=== PATIENT | female | born 1945 | race Caucasian/White ===

== ENCOUNTER 2018-10-26 12:55 | Emergency (ER) | payer MEDICARE, BC ==
[2018-10-26] MEDS ORDERED: Sodium Chloride 0.9% 10 ML Syringe FLUSH PRN (13:01)
[2018-10-26] MEDS ORDERED: Sodium Chloride 0.9% 2.5 ML Syringe FLUSH PRN (13:01)
--- NOTE | 2018-10-26 13:33 | CR ---
Indication: Chest pain. Technique: PA and lateral views the chest were obtained. Comparison: None Findings: Heart is normal in size. The lungs are clear. No infiltrate, pleural effusion, or pneumothorax is identified. Impression: No acute cardiopulmonary process. Dictated by Deborah Hartmann MD @ Oct 26 2018 1:31PM Signed by Dr. Deborah Hartmann @ Oct 26 2018 1:32PM
--- NOTE | 2018-10-26 13:42 | EDM.PDOC ---
ED HPI GENERAL MEDICAL PROBLEM - General Chief Complaint: Cardiovascular Problem Stated Complaint: HEART ISSUES Time Seen by Provider: 10/26/18 13:16 - History of Present Illness INITIAL COMMENTS - FREE TEXT/NARRATIVE: HISTORY AND PHYSICAL: History of present illness: Patient is a 73-year-old white female who presents with concern of palpitations patient describes some vague feeling in her chest this is not a pain and there is no associated diaphoresis shortness of breath nausea or vomiting she is currently being evaluated and monitored for these episodes of palpitations but has not received any formal diagnosis. Review of systems: As per history of present illness and below otherwise all systems reviewed and negative. Past medical history: As per history of present illness and as reviewed below otherwise noncontributory. Surgical history: As per history of present illness and as reviewed below otherwise noncontributory. Social history: No reported history of drug or alcohol abuse. Family history: As per history of present illness and as reviewed below otherwise noncontributory. Physical exam: HEENT: Atraumatic, normocephalic, pupils reactive, negative for conjunctival pallor or scleral icterus, mucous membranes moist, throat clear, neck supple, nontender, trachea midline. Lungs: Clear to auscultation, breath sounds equal bilaterally, chest nontender. Heart: S1S2, regular, negative for clicks, rubs, or JVD. Abdomen: Soft, nondistended, nontender. Negative for masses or hepatosplenomegaly. Negative for costovertebral tenderness. Pelvis: Stable nontender. Genitourinary: Deferred. Rectal: Deferred. Extremities: Atraumatic, negative for cords or calf pain. Neurovascular unremarkable. Neuro: Awake, alert, oriented. Cranial nerves II through XII unremarkable. Cerebellum unremarkable. Motor and sensory unremarkable throughout. Exam nonfocal. Diagnostics: CBC CMP troponin PT/INR chest x-ray EKG Therapeutics: IV O2 monitor Impression: 1 palpitations #2 medical screening exam Definitive disposition and diagnosis as appropriate pending reevaluation and review of above. - Related Data Allergies Allergy/AdvReac Type Severity Reaction Status Date / Time No Known Allergies Allergy Verified 10/26/18 13:00 Home Meds: Home Meds Lisinopril 20 mg PO DAILY 07/31/14 [History] Calcium Carbonate/Vitamin D3 [Calcium 600 + Vit D 200] 1 tab PO DAILY 12/15/15 [ History] Gluc 2KCl/Chondr/Stewart Hy/Hy Ac [Glucosamine & Chondroitin Cap] 1 tab PO DAILY [History] Iron,Carbonyl/Vit C/Vit B12/Fa [Iron 100 Plus Tablet] 1 tab PO DAILY 12/15/15 [ History] L.acidoph,Paracasei, B.lactis [Probiotic] 1 tab PO DAILY 12/15/15 [History] Multivitamin [Multivitamins] 1 tab PO DAILY 12/15/15 [History] Potassium Chloride [Klor-Con 10] 1 tab PO DAILY 12/15/15 [History] Vitamin E Mixed [Vitamin E] 1 tab PO DAILY 12/15/15 [History] Past Medical History HEENT History: Reports: Other (See Below) Other HEENT History: wears glasses Cardiovascular History: Reports: Arrhythmia, Hypertension Respiratory History: Reports: None Gastrointestinal History: Reports: GERD Genitourinary History: Reports: None 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: Musculoskeletal History: Reports: None Neurological History: Reports: None Psychiatric History: Reports: None Endocrine/Metabolic History: Reports: None Hematologic History: Reports: None Immunologic History: Reports: None Oncologic (Cancer) History: Reports: None Dermatologic History: Reports: None - Infectious Disease History Infectious Disease History: Reports: Chicken Pox, Measles, Mumps - Past Surgical History Head Surgeries/Procedures: Reports: None GI Surgical History: Reports: Appendectomy Social & Family History - Family History Family Medical History: Noncontributory HEENT: Reports: Cataract Cardiac: Reports: Heart Failure, Hypertension, [place] GI: Reports: None : Reports: None OBGYN: Reports: Musculoskeletal: Reports: Gout Psychiatric: Reports: None Endocrine/Metabolic: Reports: Diabetes, type II Hematologic: Reports: None Immunologic: Reports: None Dermatologic: Reports: None Oncologic: Reports: Breast, Renal - Tobacco Use Smoking Status *Q: Never Smoker - Recreational Drug Use Recreational Drug Use: No ED ROS GENERAL - Review of Systems Review Of Systems: ROS reveals no pertinent complaints other than HPI. ED EXAM, GENERAL - Physical Exam Exam: See Below (Dictation) Course - Vital Signs Last Recorded V/S: Last Vital Signs Temp 36.5 C 10/26/18 13:00 Pulse 59 L 10/26/18 13:00 Resp 18 10/26/18 13:00 BP 190/108 H 10/26/18 13:00 Pulse Ox 98 10/26/18 13:01 - Orders/Labs/Meds Orders: Active Orders 24 hr Category Date Time Status Cardiac Monitoring [RC] . DIRECTED Care 10/26/18 13:01 Active EKG Documentation Completion [RC] STAT Care 10/26/18 13:01 Active Oxygen Therapy [RC] ASDIRECTED Care 10/26/18 13:01 Active Sodium Chloride 0.9% [Saline Flush] Med 10/26/18 13:01 Active 10 ml FLUSH ASDIRECTED PRN Sodium Chloride 0.9% [Saline Flush] Med 10/26/18 13:01 Active 2.5 ml FLUSH ASDIRECTED PRN Saline Lock Insert [OM.PC] Stat Ot 10/26/18 13:01 Ordered Saline Lock Insert [OM.PC] Stat Ot 10/26/18 13:01 Ordered Medication Orders Sodium Chloride (Saline Flush) 10 ml FLUSH ASDIRECTED PRN PRN Reason: Keep Vein Open Sodium Chloride (Saline Flush) 2.5 ml FLUSH ASDIRECTED PRN PRN Reason: Keep Vein Open Labs: Laboratory Tests 10/26/18 10/26/18 10/26/18 Range/Units 13:35 13:35 13:35 WBC 8.45 (4.0-11.0) K/uL RBC 4.24 L (4.30-5.90) M/uL Hgb 12.8 (12.0-16.0) g/dL Hct 37.4 (36.0-46.0) % MCV 88.2 (80.0-98.0) fL MCH 30.2 (27.0-32.0) pg MCHC 34.2 (31.0-37.0) g/dL RDW Std Deviation 42.2 (28.0-62.0) fl RDW Coeff of Vaibhav 13 (11.0-15.0) % Plt Count 322 (150-400) K/uL MPV 8.50 (7.40-12.00) fL Neut % (Auto) 71.0 (48.0-80.0) % Lymph % (Auto) 19.9 (16.0-40.0) % [place] % (Auto) 6.3 (0.0-15.0) % Eos % (Auto) 2.4 (0.0-7.0) % Baso % (Auto) 0.4 (0.0-1.5) % Neut # (Auto) 6.0 H (1.4-5.7) K/uL Lymph # (Auto) 1.7 (0.6-2.4) K/uL [place] # (Auto) 0.5 (0.0-0.8) K/uL Eos # (Auto) 0.2 (0.0-0.7) K/uL Baso # (Auto) 0.0 (0.0-0.1) K/uL Nucleated RBC % 0.0 /100WBC Nucleated RBCs # 0 K/uL Sodium 135 L (136-145) mmol/L Potassium 3.8 (3.5-5.1) mmol/L Chloride 103 (98-107) mmol/L Carbon Dioxide 25.9 (21.0-32.0) mmol/L BUN 11 (7.0-18.0) mg/dL Creatinine 0.9 (0.6-1.0) mg/dL Est Cr Clr Drug Dosing 55.75 mL/min Estimated GFR (MDRD) > 60.0 ml/min Glucose 110 H (74-106) mg/dL Calcium 8.9 (8.5-10.1) mg/dL Magnesium 2.4 (1.8-2.4) mg/dL Total Bilirubin 0.7 (0.2-1.0) mg/dL AST 27 (15-37) IU/L ALT 37 (14-63) IU/L Alkaline Phosphatase 83 (46-116) U/L Troponin I < 0.050 (0.000-0.056) ng/mL Total Protein 6.9 (6.4-8.2) g/dL Albumin 3.3 L (3.4-5.0) g/dL Globulin 3.6 (2.6-4.0) g/dL Albumin/Globulin Ratio 0.9 (0.9-1.6) TSH 3rd Generation 2.29 (0.36-3.74) uIU/mL Meds: Medications Generic Name Dose Route Start Last Admin Trade Name Freq PRN Reason Stop Dose Admin Sodium Chloride 10 ml 10/26/18 13:01 Saline Flush FLUSH ASDIRECTED PRN Keep Vein Open Sodium Chloride 2.5 ml 10/26/18 13:01 Saline Flush FLUSH ASDIRECTED PRN Keep Vein Open Departure - Departure Time of Disposition: 15:17 Disposition: Home, Self-Care 01 Condition: Good Clinical Impression: Palpitations Referrals: PCP,Unknown [Primary Care Provider] - Forms: ED Department Discharge Additional Instructions: The following information is given to patients seen in the emergency department who are being discharged to home. This information is to outline your options for follow-up care. We provide all patients seen in our emergency department with a follow-up referral. The need for follow-up, as well as the timing and circumstances, are variable depending upon the specifics of your emergency department visit. If you don't have a primary care physician on staff, we will provide you with a referral. We always advise you to contact your personal physician following an emergency department visit to inform them of the circumstance of the visit and for follow-up with them and/or the need for any referrals to a consulting specialist. The emergency department will also refer you to a specialist when appropriate. This referral assures that you have the opportunity for followup care with a specialist. All of these measure are taken in an effort to provide you with optimal care, which includes your followup. Under all circumstances we always encourage you to contact your private physician who remains a resource for coordinating your care. When calling for followup care, please make the office aware that this follow-up is from your recent emergency room visit. If for any reason you are refused follow-up, please contact the [facility] emergency department at and asked to speak to the emergency department charge nurse. Continue current medications follow private medical doctor and cardiology as discussed return as needed as discussed
[2018-10-26 14:08] LABS: CHLORIDE,CL 103 mmol/L (98-107); SODIUM,NA 135 mmol/L (136-145)
[2018-10-26 15:45] VITALS: BP 144/83
== END 2018-10-26 15:30 | disposition home or self-care (01) ==
LOC: MW.ED 12:55
DX: R00.2 Palpitations (principal); I10 Essential (primary) hypertension; K21.9 Gastro-esophageal reflux disease without esophagitis; Z79.899 Other long term (current) drug therapy
CPT/HCPCS: 36415; 71045; 71045-26; 80053; 83735; 84443; 84484; 85025; 93005; 99283; 99285-25

== ENCOUNTER 2019-12-18 22:31 | Emergency (ER) | payer MEDICARE, BC ==
--- NOTE | 2019-12-18 23:07 | EDM.PDOC ---
ED HPI GENERAL MEDICAL PROBLEM - General Chief Complaint: Cardiovascular Problem Stated Complaint: irregular heart beat Time Seen by Provider: 12/18/19 22:32 Source of Information: Reports: Patient History Limitations: Reports: No Limitations - History of Present Illness INITIAL COMMENTS - FREE TEXT/NARRATIVE: HISTORY OF PRESENT ILLNESS: Patient is a 74 year old female with history of palpitations and rhythm irregularities which is being worked up by her international logistics analyst. She was supposed to see a specialist at [place] but it was cancelled due to COVID-19 crisis. She states he called her on the phone and told her there is nothing to worry about regarding the irregularities. She is on Flecainide and Eliquis which she stopped taking on Sunday as she felt it was not doing anything. This evening at 4pm she began feeling irregularity to her heart rhythm and had associated dizziness, had to sit down on a bench and symptoms resolved. Denies any chest pain or dyspnea. No syncope. No weakness or paresthesias. No changes in vision or speech. States she resumed her dose of Flecainide this evening after that episode. Had an episode of nonbloody diarrhea yesterday. No vomiting or abdominal pain. No new medications. She checked her blood pressure this evening and found sbp to be 150 which she felt was too high and this prompted her to come in. REVIEW OF SYSTEMS: Other than the symptoms associated with the present events, the following is reported with regard to recent health: General: (-) fever. HENT: (-) congestion. Respiratory: (-) cough. Cardiovascular: (-) chest pain. (+) irregular heart beat GI: (-) abdominal pain. : (-) urinary complaints. Musculoskeletal: (-) other aches or pains. Endocrine: (-) generalized weakness. Neurological: (-) localized weakness. Skin: (-) rash PAST MEDICAL HISTORY: reviewed as per nursing notes SOCIAL HISTORY: reviewed as per nursing notes, MEDICATIONS: Per nurse's note ALLERGIES: Per nurse's note, reviewed by me PHYSICAL EXAMINATION: GENERALIZED APPEARANCE: well developed, well nourished in no distress VITAL SIGNS: Per nurse's note, reviewed by me SKIN: Warm, dry; (-) cyanosis; (-) rash. HEAD: (-) scalp swelling, (-) tenderness. EYES: (-) conjunctival pallor, (-) scleral icterus. ENMT: (-) stridor; mucous membranes moist. NECK: (-) tenderness, (-) stiffness, CHEST AND RESPIRATORY: (-) rales, (-) rhonchi, (-) wheezes; breath sounds equal bilaterally. HEART AND CARDIOVASCULAR: (+) irregularity; (-) murmur, (-) gallop. ABDOMEN AND GI: Soft; (-) tenderness, (-) guarding, (-) rebound, (-) palpable masses, EXTREMITIES: (-) deformity, (-) edema. NEURO AND PSYCH: Alert. Cranial nerves grossly intact; strength symmetric. gait steady DIAGNOSTICS: EKG: sr at 77 bpm. nml axis. pvcs. no st elevation CXR: as read by radiologist, reviewed by myself Labs reviewed EMERGENCY DEPARTMENT COURSE AND TREATMENT: Patient's condition remained stable during Emergency Department evaluation. Labs and diagnostics ordered. Hypokalemia noted and replaced. EKG with Pvcs but no ST elevation or malignant dysrhythmia. Troponin wnl. Patient denies any chest pain or syncope. Based on history, physical exam, and diagnostic evaluation, the patient appears to have symptoms consistent with palpitations/pvcs. The physical exam was unremarkable including normal chest and respiratory exam. Laboratory testing was performed. Do not suspect acute emergent cardiopulmonary etiology to symptoms. Patient states she feels fine on reevaluation and requesting discharge to home. The patient will be discharged to follow-up with their primary care physician in the next 24-48 hours or return here if unable to make an appointment with their primary care physician. Also to follow up with her international logistics analyst tomorrow. Patient was advised of our evaluation and instructed to seek medical attention immediately if symptoms change, worsen, or new symptoms develop. PLAN AND FOLLOW-UP: Patient received written and verbal instructions regarding this condition. Return to ED immediately with any new or worsening symptoms. Follow up to be arranged by Patient with pcp and international logistics analyst in 1 days for further evaluation. Given discharge precautions. patient expressed verbal understanding. - Related Data Allergies Allergy/AdvReac Type Severity Reaction Status Date / Time No Known Allergies Allergy Verified 10/26/18 13:00 Home Meds: Home Meds Apixaban [Eliquis] 1 tab PO BID 12/18/19 [History] Calcium Carb, Citrate/Vit D3 [Calcium + D3 ER Tablet] 1 tab PO TID 12/18/19 [ History] Flecainide [Tambocor] 1 tab PO BID 12/18/19 [History] Glucosam/Chondr/Collagn/Hyalur [Glucosamine & Chondroitin Cap] 2 cap PO DAILY [History] Losartan Potassium 1 tab PO DAILY 12/18/19 [History] Metoprolol Succinate 1 tab PO DAILY 12/18/19 [History] Multivitamin [One-Daily Multi-Vitamin] 1 tab PO DAILY 12/18/19 [History] Non-Formulary Medication [NF Drug] 12/18/19 [History] Non-Formulary Medication [NF Drug] 12/18/19 [History] Non-Formulary Medication [NF Drug] 12/18/19 [History] Omeprazole 1 tab PO DAILY 12/18/19 [History] Potassium Chloride 1 tab PO DAILY 12/18/19 [History] Past Medical History HEENT History: Reports: Other (See Below) Other HEENT History: wears glasses Cardiovascular History: Reports: Arrhythmia, Hypertension Respiratory History: Reports: None Gastrointestinal History: Reports: GERD Genitourinary History: Reports: None 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: Musculoskeletal History: Reports: None Neurological History: Reports: None Psychiatric History: Reports: None Endocrine/Metabolic History: Reports: None Hematologic History: Reports: None Immunologic History: Reports: None Oncologic (Cancer) History: Reports: None Dermatologic History: Reports: None - Infectious Disease History Infectious Disease History: Reports: Chicken Pox, Measles, Mumps - Past Surgical History Head Surgeries/Procedures: Reports: None GI Surgical History: Reports: Appendectomy Social & Family History - Family History Family Medical History: Noncontributory HEENT: Reports: Cataract Cardiac: Reports: Heart Failure, Hypertension, [place] GI: Reports: None : Reports: None OBGYN: Reports: Musculoskeletal: Reports: Gout Psychiatric: Reports: None Endocrine/Metabolic: Reports: Diabetes, type II Hematologic: Reports: None Immunologic: Reports: None Dermatologic: Reports: None Oncologic: Reports: Breast, Renal ED ROS GENERAL - Review of Systems Review Of Systems: See Below (see dictation) ED EXAM, GENERAL - Physical Exam Exam: See Below (see dictation) Course - Vital Signs Last Recorded V/S: Last Vital Signs Temp 97.6 F 12/18/19 22:48 Pulse 69 12/18/19 22:48 Resp 18 04/16/20 22:48 BP 150/87 H 12/18/19 22:48 Pulse Ox 99 12/18/19 22:48 - Orders/Labs/Meds Orders: Active Orders 24 hr Category Date Time Status EKG 12 Lead [EKG Documentation Completion] [RC] STAT Care 12/18/19 22:40 Active Labs: Laboratory Tests 12/18/19 12/18/19 Range/Units 23:05 23:05 WBC 9.39 (4.0-11.0) K/uL RBC 4.10 L (4.30-5.90) M/uL Hgb 12.1 (12.0-16.0) g/dL Hct 37.1 (36.0-46.0) % MCV 90.5 (80.0-98.0) fL MCH 29.5 (27.0-32.0) pg MCHC 32.6 (31.0-37.0) g/dL RDW Std Deviation 44.0 (28.0-62.0) fl RDW Coeff of Vaibhav 13 (11.0-15.0) % Plt Count 341 (150-400) K/uL MPV 8.40 (7.40-12.00) fL Neut % (Auto) 70.7 (48.0-80.0) % Lymph % (Auto) 18.5 (16.0-40.0) % [place] % (Auto) 7.9 (0.0-15.0) % Eos % (Auto) 2.6 (0.0-7.0) % Baso % (Auto) 0.3 (0.0-1.5) % Neut # (Auto) 6.6 H (1.4-5.7) K/uL Lymph # (Auto) 1.7 (0.6-2.4) K/uL [place] # (Auto) 0.7 (0.0-0.8) K/uL Eos # (Auto) 0.2 (0.0-0.7) K/uL Baso # (Auto) 0.0 (0.0-0.1) K/uL Nucleated RBC % 0.0 /100WBC Nucleated RBCs # 0 K/uL Sodium 141 (136-145) mmol/L Potassium 3.3 L (3.5-5.1) mmol/L Chloride 105 (98-107) mmol/L Carbon Dioxide 23.0 (21.0-32.0) mmol/L BUN 14 (7.0-18.0) mg/dL Creatinine 0.8 (0.6-1.0) mg/dL Est Cr Clr Drug Dosing TNP Estimated GFR (MDRD) > 60.0 ml/min Glucose 114 H (74-106) mg/dL Calcium 8.3 L (8.5-10.1) mg/dL Phosphorus 3.3 (2.6-4.7) mg/dL Magnesium 2.1 (1.8-2.4) mg/dL Troponin I < 0.050 (0.000-0.056) ng/mL TSH 3rd Generation 3.43 (0.36-3.74) uIU/mL Meds: Medications Discontinued Medications Generic Name Dose Route Start Last Admin Trade Name Freq PRN Reason Stop Dose Admin Potassium Chloride 20 meq 12/18/19 23:55 12/19/19 00:02 Klor-Con M20 PO 12/18/19 23:56 20 meq ONETIME ONE Administration Departure - Departure Time of Disposition: 00:01 Disposition: Home, Self-Care 01 Condition: Good Clinical Impression: Palpitations, Irregular heart beat, PVC (premature ventricular contraction) - Discharge Information *PRESCRIPTION DRUG MONITORING PROGRAM REVIEWED*: Not Applicable *COPY OF PRESCRIPTION DRUG MONITORING REPORT IN PATIENT JOSE: Not Applicable Instructions: Near-Syncope, [id number], Palpitations, [id number] Referrals: Terese Pollack PA [Primary Care Provider] - 1 Day Rasheed Hernandez MD [Physician] - Forms: ED Department Discharge Additional Instructions: The following information is given to patients seen in the emergency department who are being discharged to home. This information is to outline your options for follow-up care. We provide all patients seen in our emergency department with a follow-up referral. The need for follow-up, as well as the timing and circumstances, are variable depending upon the specifics of your emergency department visit. If you don't have a primary care physician on staff, we will provide you with a referral. We always advise you to contact your personal physician following an emergency department visit to inform them of the circumstance of the visit and for follow-up with them and/or the need for any referrals to a consulting specialist. The emergency department will also refer you to a specialist when appropriate. This referral assures that you have the opportunity for follow-up care with a specialist. All of these measure are taken in an effort to provide you with optimal care, which includes your follow-up. Under all circumstances we always encourage you to contact your private physician who remains a resource for coordinating your care. When calling for follow-up care, please make the office aware that this follow-up is from your recent emergency room visit. If for any reason you are refused follow-up, please contact the [facility] Emergency Department at and asked to speak to the emergency department charge nurse. Sepsis Event Note - Evaluation Sepsis Screening Result: No Definite Risk - Focused Exam Vital Signs: Vital Signs Temp Pulse Resp BP Pulse Ox 12/18/19 22:48 97.6 F 69 18 150/87 H 99 Date Exam was Performed: 12/19/19 Time Exam was Performed: 00:15 - My Orders Last 24 Hours: My Active Orders 12/18/19 22:40 EKG 12 Lead [EKG Documentation Completion] [RC] STAT - Assessment/Plan Last 24 Hours: My Active Orders 12/18/19 22:40 EKG 12 Lead [EKG Documentation Completion] [RC] STAT
--- NOTE | 2019-12-18 23:38 | CR ---
Indication: Chest pain Technique: Chest 1 view Comparison: No October 26, 2018 ne Findings/Impression: Cardiovascular and mediastinum: Heart size and vasculature are normal in caliber and appearance. Mediastinum is within normal limits. Electrical device projects over the left cardiac border. Lungs and pleural space: Lungs are clear. No sign of infiltrate or mass. No sign of pleural effusion. No pneumothorax. Bones and soft tissues: No significant findings. Stable elevation of the right hemidiaphragm. Dictated by Giselle Raphael MD @ Dec 18 2019 11:35PM Signed by Dr. Giselle Raphael @ Dec 18 2019 11:36PM
[2019-12-18 23:43] LABS: BLOOD UREA NITROGEN,BUN 14 mg/dL (7.0-18.0); CHLORIDE,CL 105 mmol/L (98-107); GLUCOSE RANDOM 114 mg/dL (74-106); POTASSIUM,K 3.3 mmol/L (3.5-5.1); SODIUM,NA 141 mmol/L (136-145)
[2019-12-18] MEDS ORDERED: Potassium Chloride 20 MEQ Tab.ER PO ONE (23:55)
[2019-12-19 00:34] VITALS: BP 153/88; PULSE 61
== END 2019-12-19 00:15 | disposition home or self-care (01) ==
LOC: MW.ED 22:31
DX: I49.3 Ventricular premature depolarization (principal); R00.2 Palpitations; I10 Essential (primary) hypertension; K21.9 Gastro-esophageal reflux disease without esophagitis; Z79.899 Other long term (current) drug therapy; Z79.01 Long term (current) use of anticoagulants
CPT/HCPCS: 36415; 71045; 80048; 83735; 84100; 84443; 84484; 85025; 93005; 99285; A9270; 99284

== ENCOUNTER 2020-12-16 07:04 | Day surgery (SDC) | payer MEDICARE, BC ==
[~2020-12-16 07:04] MED LIST: Lactated Ringers 1,000 ML IV SCH; Sodium Chloride 0.9% 10 ML SDV IV PRN; Sodium Chloride 0.9% 10 ML Syringe FLUSH PRN; Sodium Chloride 0.9% 2.5 ML Syringe FLUSH PRN
[2020-12-16] MEDS ORDERED: fentaNYL 100 MCG/2 ML SDV ONE (07:38)
[2020-12-16] MEDS ORDERED: Propofol 200 MG/20 ML SDV ONE (07:38)
[2020-12-16] MEDS ORDERED: Lidocaine 2% 5 ML SDV ONE (07:38)
--- NOTE | 2020-12-16 08:04 | PCM.PREANE ---
Preanesthetic Assessment - Anesthesia/Transfusion/Family Hx Anesthesia History: Prior Anesthesia Without Reaction Family History of Anesthesia Reaction: No Transfusion History: No Prior Transfusion(s) - Review of Systems General: No Symptoms Pulmonary: No Symptoms Cardiovascular: No Symptoms Gastrointestinal: No Symptoms Neurological: No Symptoms Other: Reports: None - Physical Assessment NPO Status Date: 12/16/20 NPO Status Time: 00:01 Height: 5 ft 7 in Weight: 150 lb ASA Class: 2 Mental Status: Alert & Oriented x3 Airway Class: Mallampati = 2 Dentition: Reports: Normal Dentition ROM/Head Extension: Limited/Partial Lungs: Clear to Auscultation, Normal Respiratory Effort Cardiovascular: Regular Rate, Regular Rhythm - Allergies Allergies/Adverse Reactions: Allergies Allergy/AdvReac Type Severity Reaction Status Date / Time No Known Allergies Allergy Verified 12/13/20 14:44 - Anesthesia Plan Pre-Op Medication Ordered: None - Acknowledgements Anesthesia Type Planned: General Anesthesia Pt an Appropriate Candidate for the Planned Anesthesia: Yes Alternatives and Risks of Anesthesia Discussed w Pt/Guardian: Yes Pt/Guardian Understands and Agrees with Anesthesia Plan: Yes Additional Comments: npo tob none etoh none nicole afib aflutter tachycardia bradycardia pac's pvc's no mi, cp, chf seen by hand booked folder and stitcher a month ago and cleared for surgery cardiac cath last summer minimal stenosis last eliqu on Sunday par no questions PreAnesthesia Questionnaire HEENT History: Reports: Cataract, Impaired Vision Other HEENT History: wears glasses Cardiovascular History: Reports: Arrhythmia Respiratory History: Reports: None Gastrointestinal History: Reports: GERD, Other (See Below) Other Gastrointestinal History: occasional heartburn Genitourinary History: Reports: None 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: Musculoskeletal History: Reports: Fracture Other Musculoskeletal History: states has fractured ankle and collar bone in the past Neurological History: Reports: None Psychiatric History: Reports: None Endocrine/Metabolic History: Reports: None Hematologic History: Reports: None Immunologic History: Reports: None Oncologic (Cancer) History: Reports: None Dermatologic History: Reports: None - Infectious Disease History Infectious Disease History: Reports: Chicken Pox, Measles, Mumps - Past Surgical History Head Surgeries/Procedures: Reports: None HEENT Surgical History: Reports: None Cardiovascular Surgical History: Reports: None Respiratory Surgical History: Reports: None GI Surgical History: Reports: Appendectomy, Colonoscopy Female Surgical History: Reports: None Endocrine Surgical History: Reports: None Musculoskeletal Surgical History: Reports: None - SUBSTANCE USE Tobacco Use Status *Q: Never Tobacco User - HOME MEDS Home Medications: Home Meds Apixaban [Eliquis] 1 tab PO BID 12/18/19 [History] Calcium Carb, Citrate/Vit D3 [Calcium + D3 ER Tablet] 1 tab PO TID 12/18/19 [History] Glucosam/Chondr/Collagn/Hyalur [Glucosamine & Chondroitin Cap] 2 cap PO DAILY 12/18/19 [History] Losartan Potassium 1 tab PO DAILY 12/18/19 [History] Metoprolol Succinate 1 tab PO DAILY 12/18/19 [History] Multivitamin [One-Daily Multi-Vitamin] 1 tab PO DAILY 12/18/19 [History] Omeprazole 1 tab PO DAILY 12/18/19 [History] Potassium Chloride 1 tab PO DAILY 12/18/19 [History] Iron 1 tab PO DAILY 12/13/20 [History] L.acidoph,Paracasei, B.lactis [Probiotic] 1 each PO DAILY 12/13/20 [History] [place]-3S/DHA/Epa/Fish Oil [[place]-3 Fish Oil 1,000 mg Sfgl] 1 tab PO DAILY 12/13/20 [History] - CURRENT (IN HOUSE) MEDS Current Meds: Current Medications Lactated Ringer's (Ringers, Lactated) 1,000 mls @ 125 mls/hr IV ASDIRECTED LJ Sodium Chloride (Sodium Chloride 0.9% 10 Ml Syringe) 10 ml FLUSH ASDIRECTED PRN PRN Reason: Keep Vein Open Sodium Chloride (Sodium Chloride 0.9% 2.5 Ml Syringe) 2.5 ml FLUSH ASDIRECTED PRN PRN Reason: Keep Vein Open Sodium Chloride (Sodium Chloride 0.9% 10 Ml Syringe) 10 ml FLUSH ASDIRECTED PRN PRN Reason: Keep Vein Open Sodium Chloride (Sodium Chloride 0.9% 2.5 Ml Syringe) 2.5 ml FLUSH ASDIRECTED PRN PRN Reason: Keep Vein Open Sodium Chloride (Sodium Chloride 0.9% 10 Ml Sdv) 10 ml IV ASDIRECTED PRN PRN Reason: IV Use Discontinued Medications Fentanyl (Fentanyl 100 Mcg/2 Ml Sdv) Confirm Administered Dose 100 mcg .ROUTE .STK-MED ONE Stop: 12/16/20 07:39 Lidocaine (Lidocaine 2% 5 Ml Sdv) Confirm Administered Dose 5 ml .ROUTE .STK-MED ONE Stop: 12/16/20 07:39 Propofol (Propofol 200 Mg/20 Ml Sdv) Confirm Administered Dose 200 mg .ROUTE .STK-MED ONE Stop: 12/16/20 07:39
--- NOTE | 2020-12-16 08:58 | PCM.POSTAN ---
POST ANESTHESIA ASSESSMENT - MENTAL STATUS Mental Status: Alert, Oriented - VITAL SIGNS Vital Signs: Last Vital Signs Temp 97.5 F 12/16/20 08:11 Pulse 55 L 12/16/20 08:52 Resp 13 12/16/20 08:52 BP 100/50 L 12/16/20 08:52 Pulse Ox 97 12/16/20 08:52 - RESPIRATORY Respiratory Status: Respiratory Rate WNL, Airway Patent, O2 Saturation Stable - CARDIOVASCULAR CV Status: Pulse Rate WNL, Blood Pressure Stable - GASTROINTESTINAL GI Status: No Symptoms - POST OP HYDRATION Hydration Status: Adequate & Stable - OBSERVATIONS Free Text/Narrative:: no anesthetic problems
--- NOTE | 2020-12-16 09:11 | PCM.POSTAN ---
POST ANESTHESIA ASSESSMENT - MENTAL STATUS Mental Status: Alert (bp stable no anesthetic problems), Oriented - VITAL SIGNS Vital Signs: Last Vital Signs Temp 97.5 F 12/16/20 08:11 Pulse 55 L 12/16/20 08:52 Resp 13 12/16/20 08:52 BP 100/50 L 12/16/20 08:52 Pulse Ox 97 12/16/20 08:52 - RESPIRATORY Respiratory Status: Respiratory Rate WNL, Airway Patent, O2 Saturation Stable - CARDIOVASCULAR CV Status: Pulse Rate WNL, Blood Pressure Stable - GASTROINTESTINAL GI Status: No Symptoms - POST OP HYDRATION Hydration Status: Adequate & Stable
--- NOTE | 2020-12-16 09:31 | PCM.OPNOTE ---
- General Post-Op/Procedure Note Date of Surgery/Procedure: 12/16/20 Operative Procedure(s): Diagnostic colonoscopy Findings: Proctitis and ileitis Pre Op Diagnosis: Ilietis Post-Op Diagnosis: Ileitis and proctitis Anesthesia Technique: DOMINIC Primary Surgeon: Patricia Navarrete Condition: Good Free Text/Narrative:: Intake & Output 12/15/20 12/16/20 12/16/20 22:59 06:59 14:59 Intake Total 750 Balance 750
--- NOTE | 2020-12-16 09:37 | PCM48HPAN ---
Post Anesthesia Note - EVALUATION WITHIN 48HRS OF ANESTHETIC Vital Signs in Normal Range: Yes Patient Participated in Evaluation: Yes Respiratory Function Stable: Yes Airway Patent: Yes Cardiovascular Function Stable: Yes Hydration Status Stable: Yes Pain Control Satisfactory: Yes Nausea and Vomiting Control Satisfactory: Yes Mental Status Recovered: Yes Vital Signs: Last Vital Signs Temp 97.5 F 12/16/20 08:11 Pulse 55 L 12/16/20 08:52 Resp 13 12/16/20 08:52 BP 100/50 L 12/16/20 08:52 Pulse Ox 97 12/16/20 08:52
[2020-12-16 12:35] VITALS: BP 111/67; PULSE 51
--- NOTE | 2020-12-16 17:37 | OR ---
SURGEON: PATRICIA NAVARRETE MD DATE OF PROCEDURE: 12/16/2020 PREOPERATIVE DIAGNOSIS: Ileitis. POSTOPERATIVE DIAGNOSES: 1. Ileitis. 2. Proctitis. PROCEDURE PERFORMED: Diagnostic colonoscopy with biopsy. PRIMARY SURGEON: Patricia Navarrete MD ANESTHESIA: MAC. INSTRUMENT USED: Olympus colonoscope. EXTENT OF EXAM: To the cecum. PREPARATION: Good. LIMITATIONS: None. INDICATIONS FOR EXAMINATION: The patient is a 75-year-old female who presented to clinic with changes in her bowel habits. A CT scan of the abdomen and pelvis showed nonspecific ileitis. 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 The decision was made to proceed with diagnostic colonoscopy. I explained the procedure, expected perioperative course, and the risks. The patient verbalized understanding and wishes to proceed. PROCEDURE IN DETAIL: The patient was brought to the endoscopy suite and placed in the left lateral decubitus position. A time-out was completed verifying the patient's name, age, date of , allergies, and procedure to be performed. Monitored anesthesia care was induced and continuous oxygen was provided via nasal cannula throughout the procedure. After adequate sedation was achieved, a digital rectal exam was performed. This exam was within normal limits. A well-lubricated colonoscope was inserted into the rectum and advanced under direct visualization to the level of the cecum. The cecum was identified by both visual and anatomic landmarks. A photograph was taken of the cecal cap as well as with the scope retroflexed within the cecum. The scope was then fully withdrawn while examining the color, texture, anatomy, and integrity of the mucosa from the cecum to the anal canal. The terminal ileum did appear inflamed. I attempted to intubate the terminal ileum, but due to the inflammation, the area was too narrow and I was unable to do so. Biopsies were taken of the terminal ileum as well as within the cecal cap. Random biopsies were taken in the ascending colon, transverse colon, descending colon, and sigmoid colon. However, these areas all appeared normal. The scope was then brought into the rectum. There appeared to be areas of chronic inflammation in the rectum as well. Biopsies of this inflammation were taken. The scope was then retroflexed to allow visualization of the anal canal opening and a photograph was taken. The scope was straightened out and fully withdrawn. Cecum to anus time was 15 minutes. The patient tolerated the procedure well and was transferred to the PACU in stable condition. ENDOSCOPIC DIAGNOSIS: Ileitis and proctitis. RECOMMENDATIONS: We will follow up on the biopsy results from this case and visit with the patient in clinic to determine the next steps in treatment. MARIE AGUILLON /[id number]
== END 2020-12-16 09:30 | disposition home or self-care (01) ==
LOC: MW.SDS 07:04
PROVIDERS: ATTEND Surgery
DX: K51.20 Ulcerative (chronic) proctitis without complications (principal); K51.90 Ulcerative colitis, unspecified, without complications; I48.91 Unspecified atrial fibrillation; I48.92 Unspecified atrial flutter; K21.9 Gastro-esophageal reflux disease without esophagitis; I10 Essential (primary) hypertension; Z79.899 Other long term (current) drug therapy; Z79.01 Long term (current) use of anticoagulants; Z91.09 Other allergy status, other than to drugs and biological substances; Z90.49 Acquired absence of other specified parts of digestive tract
CPT/HCPCS: 00811; 88305; J2704; J3010; J7120

== ENCOUNTER 2021-06-03 16:45 | Emergency (ER) | payer MEDICARE, BC ==
[2021-06-03] MEDS ORDERED: Sodium Chloride 0.9% 2.5 ML Syringe FLUSH PRN ×2 (16:50→17:58)
[2021-06-03] MEDS ORDERED: Sodium Chloride 0.9% 10 ML Syringe FLUSH PRN ×2 (16:50→17:58)
[2021-06-03 17:29] LABS: BLOOD UREA NITROGEN,BUN 14 mg/dL (7.0-18.0); CARBON DIOXIDE,CO2 26.4 mmol/L (21.0-32.0); CHLORIDE,CL 98 mmol/L (98-107); GLUCOSE RANDOM 114 mg/dL (74-106); POTASSIUM,K 3.4 mmol/L (3.5-5.1); SODIUM,NA 136 mmol/L (136-145)
[2021-06-03] MEDS ORDERED: Aspirin 81 MG Tab.Chew PO ONE (17:35)
--- NOTE | 2021-06-03 17:35 | PCM.EKG ---
#1 Interpretation EKG Date: 06/03/21 Time: 16:50 Rhythm: NSR Rate (Beats/Min): 72 [place]: Normal P-Wave: Present QRS: Normal ST-T: Normal QT: Normal Comparison: No Change (12/18/19) EKG Interpretation Comments: Sinus Rhythm
[2021-06-03] MEDS ORDERED: Sodium Chloride 0.9% 1,000 ML IV ONE (17:37)
--- NOTE | 2021-06-03 17:43 | PCM.EKG ---
#1 Interpretation EKG Date: 06/03/21 Time: 17:35 Rhythm: NSR Rate (Beats/Min): 73 [place]: Normal P-Wave: Present QRS: Normal ST-T: Normal QT: Normal Comparison: No Change (todayt) EKG Interpretation Comments: Sinus Rhythm
[2021-06-03] MEDS ORDERED: Heparin Sodium 5,000 Units/ML Vial IVPUSH ONE (17:58)
[2021-06-03] MEDS ORDERED: Heparin Sodium/0.45% NaCl 500 ML IV SCH (18:00)
--- NOTE | 2021-06-03 18:25 | CR ---
INDICATION: Chest Pain COMPARISON: Chest radiograph December 18, 2019 FINDINGS AND IMPRESSION: Persistent elevation of the right hemidiaphragm. Mild enlargement of the cardiomediastinal silhouette with mild pulmonary vasculature congestion. There is no pulmonary edema. No pneumothorax. Mild opacity within the left lung base likely represents atelectasis. Otherwise, no focal pulmonary opacities. No effusion. Dictated by Denisha Friend MD @ 06/03/2021 6:23:51 PM (Electronically Signed)
--- NOTE | 2021-06-03 18:35 | EDM.PDOC ---
ED HPI GENERAL MEDICAL PROBLEM - General Chief Complaint: Chest Pain Stated Complaint: CHEST PAINS Time Seen by Provider: 06/03/21 16:53 Source of Information: Reports: Patient History Limitations: Reports: No Limitations - History of Present Illness INITIAL COMMENTS - FREE TEXT/NARRATIVE: HISTORY AND PHYSICAL: History of present illness: Patient is a 76-year-old female who presents to the emergency room with complaints of midsternal chest pain. She states around noon she had an episode of nausea and diarrhea that lasted approximately an hour. Shortly after she became diaphoretic, felt near syncopal and started having midsternal chest pain describes it as a "burning sensation". Since she has had several loose stools, continued nausea and midsternal chest pain that has not resolved. She states she has seen our gun stock checker Dr. Parsons, for an irregular heartbeat and has been placed on Eliquis. She denies any recent injury, trauma or falls. Patient denies any fever, chills, headache, change in vision, or syncope. Denies any back pain, shortness of breath or cough. Denies any abdominal pain, constipation or dysuria. Has not noted any blood in urine or stool. Patient has been eating and drinking appropriately. No recent travel or sick contacts. Review of systems: As per history of present illness and below otherwise all systems reviewed and negative. Past medical history: As per history of present illness and as reviewed below otherwise noncontributory. Surgical history: As per history of present illness and as reviewed below otherwise noncont ributory. Social history: See social history for further information Family history: As per history of present illness and as reviewed below otherwise noncontributory. Physical exam: General: Well developed and well nourished. Alert and orientated x 3. Nontoxic in appearance and in no acute distress. Vital signs are stable and have been reviewed by me. Nursing notes were reviewed. HEENT: Atraumatic, normocephalic, pupils equal and reactive bilaterally, negative for conjunctival pallor or scleral icterus, mucous membranes dry, TMs normal bilaterally, throat clear, neck supple, nontender, trachea midline. No drooling or trismus noted. No meningeal signs. No hot potato voice noted. Lungs: Clear to auscultation bilaterally. No wheezes, rales, or rhonchi. Chest nontender. Normal work of breathing, no accessory muscles used. Heart: S1S2, regular rate and rhythm without overt murmur, gallops, or rubs. No JVD. No peripheral edema Abdomen: Soft, nondistended, nontender. Normoactive bowel sounds. Negative for masses or costovertebral tenderness. Skin: Pale, intact, warm, dry. No lesions or rashes noted. Hematologic: No petechiae or purpra. Mucosa appropriate color and normal nail bed color and refill. Extremities: Atraumatic, moves all extremities per self without difficulty or deficits, negative for cords or calf pain. Neurovascular unremarkable. Neuro: Awake, alert, oriented. Cranial nerves II through XII unremarkable. Cerebellum unremarkable. Motor and sensory unremarkable throughout. Exam nonfocal. Psychiatric: Mood and affect are appropriate. Normal thought process. Answering questions appropriately. Please note that the patient was seen and evaluated during the 2019 SARS-CoV-2 novel coronavirus pandemic period. Community viral transmission is ongoing at time of this encounter and the emergency department is operating under pandemic response procedures. Medical Decision Making: Patient is a 76-year-old female who presents to the emergency room with complaints of chest pain. She states around noon she started to have nausea and diarrhea. She states she sat in the bathroom for approximately an hour and shortly after became diaphoretic, near syncopal and started developing midsternal chest pain. She states she continues to have nausea and the chest pain which she describes as a heavy burning sensation. Pain does not radiate. We will give her IV fluids, aspirin and cardiac work-up. EKG shows sinus rhythm with a rate of 72. No ST elevation or changes. Dr [place] involved in patients care due to acuity. CXR shows persistent elevation of the right hemidiaphragm. Mild enlargement of the cardiomediastinal silhouette with mild pulmonary vasculature congestion. There is no pulmonary edema. No pneumothorax. Mild opacity within the left lung base likely represents atelectasis. Otherwise, no focal pulmonary opacities. No effusion. Patient's troponin is elevated. Repeat EKG shows sinus rhythm with a rate of 73, no ST elevation noted. 1735: [facility] [place] at capacity. 1740: [facility] at capacity. 1750: [facility] at capacity. 1800: [facility] does have some beds available. They will call back, once they get ahold of the hospitalist. 1830: Reviewed this case with Dr Salcido, hospitalist, who is agreeable to accepting this patient for further care and management. Patient has taken her morning dose of Eliquis. She is okay with this patient having heparin since she has not had her evening dose of Eliquis. Our ground transport crew is unavailable. We are searching for transport team to be able to transfer this patient to [place]. It is a 6-hour commute via ground. I have talked with the patient about today's findings, in addition to providing specific details for plan of care. Reassessment at the time of disposition demonstrates that the patient is in no acute distress. Due to the delay in transfer, ground and flight are currently being used by outside resources, a repeat troponin was completed. Troponin is continuing to rise that 0.295. Patient is pain-free and vital signs are stable. We will continue to monitor. Were continuing to look for a transport group. Diagnostics: CBC, CMP, troponin, EKG, chest x-ray Therapeutics: IV fluid, aspirin, Impression: NSTEMI Plan: Transfer to [facility] Definitive disposition and diagnosis as appropriate pending reevaluation and review of above. 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: Reports: Acetaminophen chest/back Pain Score (Numeric/FACES): 5 - Related Data Allergies Allergy/AdvReac Type Severity Reaction Status Date / Time No Known Allergies Allergy Verified 06/03/21 17:26 Home Meds: Home Meds Apixaban [Eliquis] 1 tab PO BID 12/18/19 [History] Calcium Carb, Citrate/Vit D3 [Calcium + D3 ER Tablet] 1 tab PO TID 12/18/19 [History] Glucosam/Chondr/Collagn/Hyalur [Glucosamine & Chondroitin Cap] 2 cap PO DAILY 12/18/19 [History] Losartan Potassium 1 tab PO DAILY 12/18/19 [History] Metoprolol Succinate 1 tab PO DAILY 12/18/19 [History] Multivitamin [One-Daily Multi-Vitamin] 1 tab PO DAILY 12/18/19 [History] Omeprazole 1 tab PO DAILY 12/18/19 [History] Potassium Chloride 1 tab PO DAILY 12/18/19 [History] Iron 1 tab PO DAILY 12/13/20 [History] L.acidoph,Paracasei, B.lactis [Probiotic] 1 each PO DAILY 12/13/20 [History] [place]-3S/DHA/Epa/Fish Oil [[place]-3 Fish Oil 1,000 mg Sfgl] 1 tab PO DAILY 12/13/20 [History] Past Medical History HEENT History: Reports: Cataract, Impaired Vision Other HEENT History: wears glasses Cardiovascular History: Reports: Arrhythmia Respiratory History: Reports: None Gastrointestinal History: Reports: GERD, Other (See Below) Other Gastrointestinal History: occasional heartburn Genitourinary History: Reports: None 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: Musculoskeletal History: Reports: Fracture Other Musculoskeletal History: states has fractured ankle and collar bone in the past Neurological History: Reports: None Psychiatric History: Reports: None Endocrine/Metabolic History: Reports: None Hematologic History: Reports: None Immunologic History: Reports: None Oncologic (Cancer) History: Reports: None Dermatologic History: Reports: None - Infectious Disease History Infectious Disease History: Reports: Chicken Pox, Measles, Mumps - Past Surgical History Head Surgeries/Procedures: Reports: None HEENT Surgical History: Reports: None Cardiovascular Surgical History: Reports: None Respiratory Surgical History: Reports: None GI Surgical History: Reports: Appendectomy, Colonoscopy Female Surgical History: Reports: None Endocrine Surgical History: Reports: None Musculoskeletal Surgical History: Reports: None Social & Family History - Family History Family Medical History: No Pertinent Family History HEENT: Reports: Cataract Cardiac: Reports: Heart Failure, Hypertension, [place] GI: Reports: None : Reports: None OBGYN: Reports: Musculoskeletal: Reports: Gout Psychiatric: Reports: None Endocrine/Metabolic: Reports: Diabetes, type II Hematologic: Reports: None Immunologic: Reports: None Dermatologic: Reports: None Oncologic: Reports: Breast, Renal - Tobacco Use Tobacco Use Status *Q: Never Tobacco User - Caffeine Use Caffeine Use: Reports: Soda - Recreational Drug Use Recreational Drug Use: No ED ROS GENERAL - Review of Systems Review Of Systems: Comprehensive ROS is negative, except as noted in HPI. ED EXAM, GENERAL - Physical Exam Exam: See Below (See dictation) Course - Vital Signs Last Recorded V/S: Last Vital Signs Temp 98.2 F 06/03/21 19:00 Pulse 78 06/03/21 19:00 Resp 18 06/03/21 19:00 BP 99/55 L 06/03/21 19:00 Pulse Ox 98 06/03/21 19:00 - Orders/Labs/Meds Orders: Active Orders 24 hr Category Date Time Status Brandon Catheter Insertion [Insert Urinary Catheter] [OM. Care 06/03/21 19:15 Ordered PC] Q24H Saline Lock Insert [OM.PC] Stat Oth 06/03/21 16:51 Ordered Saline Lock Insert [OM.PC] Stat Oth 06/03/21 17:58 Ordered Labs: Laboratory Tests 06/03/21 06/03/21 06/03/21 Range/Units 17:00 17:00 18:47 WBC 13.28 H (4.0-11.0) K/uL RBC 3.88 L (4.30-5.90) M/uL Hgb 11.8 L (12.0-16.0) g/dL Hct 35.0 L (36.0-46.0) % MCV 90.2 (80.0-98.0) fL MCH 30.4 (27.0-32.0) pg MCHC 33.7 (31.0-37.0) g/dL RDW Std Deviation 44.1 (28.0-62.0) fl RDW Coeff of Vaibhav 13 (11.0-15.0) % Plt Count 287 (150-400) K/uL MPV 8.60 (7.40-12.00) fL Neut % (Auto) 85.4 H (48.0-80.0) % Lymph % (Auto) 5.3 L (16.0-40.0) % [place] % (Auto) 8.7 (0.0-15.0) % Eos % (Auto) 0.5 (0.0-7.0) % Baso % (Auto) 0.1 (0.0-1.5) % Neut # (Auto) 11.4 H (1.4-5.7) K/uL Lymph # (Auto) 0.7 (0.6-2.4) K/uL [place] # (Auto) 1.2 H (0.0-0.8) K/uL Eos # (Auto) 0.1 (0.0-0.7) K/uL Baso # (Auto) 0.0 (0.0-0.1) K/uL Nucleated RBC % 0.0 /100WBC Nucleated RBCs # 0 K/uL Sodium 136 (136-145) mmol/L Potassium 3.4 L (3.5-5.1) mmol/L Chloride 98 (98-107) mmol/L Carbon Dioxide 26.4 (21.0-32.0) mmol/L BUN 14 (7.0-18.0) mg/dL Creatinine 1.0 (0.6-1.0) mg/dL Est Cr Clr Drug Dosing TNP Estimated GFR (MDRD) 54.2 ml/min Glucose 114 H (74-106) mg/dL Calcium 8.3 L (8.5-10.1) mg/dL Magnesium 1.9 (1.8-2.4) mg/dL Total Bilirubin 0.7 (0.2-1.0) mg/dL AST 56 H (15-37) IU/L ALT 50 (14-63) IU/L Alkaline Phosphatase 74 (46-116) U/L Troponin I 0.234 H* 0.295 H* (0.000-0.056) ng/mL Total Protein 6.5 (6.4-8.2) g/dL Albumin 2.7 L (3.4-5.0) g/dL Globulin 3.8 (2.6-4.0) g/dL Albumin/Globulin Ratio 0.7 L (0.9-1.6) Meds: Medications Discontinued Medications Generic Name Dose Route Start Last Admin Trade Name Freq PRN Reason Stop Dose Admin Aspirin 324 mg 06/03/21 17:35 06/03/21 17:45 Aspirin 81 Mg Tab.Chew PO 06/03/21 17:36 324 mg ONETIME ONE Administration Heparin Sodium (Porcine) 4,000 units 06/03/21 17:58 06/03/21 18:42 Heparin Sodium 5,000 Units/Ml Vial IVPUSH 06/03/21 17:59 4,000 units .BOLUS ONE Administration Protocol Sodium Chloride 1,000 mls @ 999 mls/hr 06/03/21 17:37 06/03/21 17:43 Normal Saline IV 06/03/21 18:37 999 mls/hr STAT ONE Administration Heparin Sodium/Sodium Chloride 500 mls @ 15.785 mls/hr 06/03/21 18:00 06/03/21 18:41 Heparin 25,000 Units In 1/2 Ns 500 Ml IV 12 units/kg/hr TITRATE LJ 15.785 mls/hr Administration Protocol 12 UNITS/KG/HR Sodium Chloride 2.5 ml 06/03/21 16:50 06/03/21 17:43 Sodium Chloride 0.9% 2.5 Ml Syringe FLUSH 2.5 ml ASDIRECTED PRN Administration Keep Vein Open Sodium Chloride 10 ml 06/03/21 16:50 06/03/21 17:43 Sodium Chloride 0.9% 10 Ml Syringe FLUSH 10 ml ASDIRECTED PRN Administration Keep Vein Open Sodium Chloride 10 ml 06/03/21 17:58 Sodium Chloride 0.9% 10 Ml Syringe FLUSH ASDIRECTED PRN Keep Vein Open Sodium Chloride 2.5 ml 06/03/21 17:58 Sodium Chloride 0.9% 2.5 Ml Syringe FLUSH ASDIRECTED PRN Keep Vein Open Departure - Departure Time of Disposition: 22:12 Disposition: DC/Tfer to [facility] 02 Reason for Transfer *Q: Other Condition: Undetermined Clinical Impression: NSTEMI (non-ST elevated myocardial infarction) Referrals: Rasheed Hernandez MD [Primary Care Provider] - Forms: ED Department Discharge Sepsis Event Note (ED) - Evaluation Sepsis Screening Result: No Definite Risk - Focused Exam Vital Signs: Vital Signs Temp Pulse Resp BP Pulse Ox 06/03/21 19:00 98.2 F 78 18 99/55 L 98 06/03/21 18:30 77 20 100/58 L 97 06/03/21 18:00 98.1 F 80 18 98/53 L 96 06/03/21 17:45 98.2 F 82 18 110/71 97 06/03/21 17:26 97.5 F 72 16 105/58 L 98 06/03/21 17:00 98.1 F 80 20 113/73 97 - My Orders Last 24 Hours: My Active Orders 06/03/21 17:58 Saline Lock Insert [OM.PC] Stat 06/03/21 19:15 [place] Catheter Insertion [Insert Urinary Catheter] [OM.PC] Q24H - Assessment/Plan Last 24 Hours: My Active Orders 06/03/21 17:58 Saline Lock Insert [OM.PC] Stat 06/03/21 19:15 [place] Catheter Insertion [Insert Urinary Catheter] [OM.PC] Q24H
[2021-06-03 19:01] VITALS: BP 99/55; PULSE 78
== END 2021-06-03 21:15 ==
LOC: MW.ED 16:45
DX: I21.4 Non-ST elevation (NSTEMI) myocardial infarction (principal); K21.9 Gastro-esophageal reflux disease without esophagitis; Z79.01 Long term (current) use of anticoagulants; Z79.899 Other long term (current) drug therapy
CPT/HCPCS: 36415; 51702; 71045; 80053; 83735; 84484; 85025; 93005; 96365; 96366; 99285; A9270; J1644; J7030

== ENCOUNTER 2022-01-03 13:35 | Emergency (ER) | payer MEDICARE, BC ==
[2022-01-03 16:16] VITALS: BP 117/65; PULSE 68
== END 2022-01-03 16:16 | disposition home or self-care (01) ==
LOC: MW.ED 13:35
DX: K92.2 Gastrointestinal hemorrhage, unspecified (principal); K50.90 Crohn's disease, unspecified, without complications; K21.9 Gastro-esophageal reflux disease without esophagitis; Z90.49 Acquired absence of other specified parts of digestive tract; Z79.01 Long term (current) use of anticoagulants; Z79.899 Other long term (current) drug therapy
CPT/HCPCS: 36415; 86140; 93005; 93010; 99285; 99285-25

== ENCOUNTER 2022-01-17 05:56 | Emergency (ER) | payer MEDICARE, BC ==
[2022-01-17] MEDS ORDERED: Pantoprazole 80 MG in Sodium Chloride 0.9% 10 ML IVPUSH ONE (06:19)
[2022-01-17 06:55] LABS: CARBON DIOXIDE,CO2 26.5 mmol/L (21.0-32.0); POTASSIUM,K 2.5 mmol/L (3.5-5.1)
[2022-01-17] MEDS ORDERED: Iopamidol 755 MG/ML 500 ML Multipack Bottle IVPUSH STA (07:37)
[2022-01-17] MEDS ORDERED: Sodium Chloride 0.9% 1,000 ML IV ONE (07:42)
[2022-01-17] MEDS ORDERED: Acetaminophen 325 MG Tab PO ONE (10:39)
[2022-01-17 14:07] VITALS: BP 105/52; PULSE 72
== END 2022-01-17 14:00 ==
LOC: MW.ED 05:56
DX: K92.2 Gastrointestinal hemorrhage, unspecified (principal); K50.10 Crohn's disease of large intestine without complications; I10 Essential (primary) hypertension; R55 Syncope and collapse; I95.9 Hypotension, unspecified; K21.9 Gastro-esophageal reflux disease without esophagitis; Z79.899 Other long term (current) drug therapy
CPT/HCPCS: 36415; 36430; 74177; 80053; 83605; 84484; 85025; 85027; 85610; 86850; 86900; 86901; 86920; 93005; 96361; 96374; 99285; A9270; C9113; J3490; J7030; P9016; Q9967; U0002; 93010; 99291

== ENCOUNTER 2022-11-28 11:02 | Emergency (ER) | payer MEDICARE, BC ==
[2022-11-28 11:20] VITALS: BP 119/49; PULSE 70
[2022-11-28 13:00] LABS: CARBON DIOXIDE,CO2 27.6 mmol/L (21.0-32.0); POTASSIUM,K 4.5 mmol/L (3.5-5.1)
[2022-11-28] MEDS ORDERED: Iopamidol 755 MG/ML 500 ML Multipack Bottle IVPUSH STA (13:28)
== END 2022-11-28 15:34 | disposition home or self-care (01) ==
LOC: MW.ED 11:02
DX: K56.7 Ileus, unspecified (principal); K21.9 Gastro-esophageal reflux disease without esophagitis; Z79.01 Long term (current) use of anticoagulants; Z79.899 Other long term (current) drug therapy; Z90.49 Acquired absence of other specified parts of digestive tract
CPT/HCPCS: 36415; 74177; 80053; 83690; 85025; 99284; Q9967

== ENCOUNTER 2024-02-29 19:12 | Emergency (ER) | payer MEDICARE, BC ==
[2024-02-29] MEDS: Sodium Chloride 0.9% 2.5 ML Syringe FLUSH PRN (19:27)
[2024-02-29] MEDS: Sodium Chloride 0.9% 10 ML Syringe FLUSH PRN (19:27)
[2024-02-29 19:29] LABS: BASOPHILS ABSOLUTE AUTO 0.05 K/uL (0.00-0.20); BASOPHILS PERCENT AUTO 0.5 % (0.0-1.0); EOSINOPHILS ABSOLUTE AUTO 0.15 K/uL (0.00-0.45); EOSINOPHILS PERCENT AUTO 1.6 % (0.0-6.0); HEMATOCRIT 36.3 % (37.0-47.0); HEMOGLOBIN 12.1 g/dL (12.0-16.0); IMMATURE GRAN ABSOLUTE AUTO 0.03 K/uL (0.00-0.05); IMMATURE GRAN PERCENT AUTO 0.3 % (0.0-0.4); LYMPHOCYTES ABSOLUTE AUTO 1.74 K/uL (1.00-4.80); MEAN CORPUSCULAR HEMOGLOBIN 29.5 pg (28.0-32.0); MEAN CORPUSCULAR HGB CONC 33.3 g/dL (32.0-36.0); MEAN CORPUSCULAR VOLUME 88.5 fL (83.0-99.0); MEAN PLATELET VOLUME 8.1 fL (9.4-12.3); MONOCYTES ABSOLUTE AUTO 0.93 K/uL (0.00-0.80); MONOCYTES PERCENT AUTO 10.2 % (0.0-8.0); NEUTROPHILS ABSOLUTE AUTO 6.25 K/uL (1.80-7.70); NEUTROPHILS PERCENT AUTO 68.4 % (41.0-71.0); PLATELET COUNT,PLT 394 K/uL (150-400); WHITE BLOOD CELL COUNT,WBC 9.15 K/uL (3.9-11.3)
[2024-02-29 20:00] LABS: ALBUMIN 3.3 g/dL (3.4-5.0); BILIRUBIN TOTAL 0.4 mg/dL (0.2-1.0); CALCIUM 8.4 mg/dL (8.5-10.1); CARBON DIOXIDE,CO2 25.4 mmol/L (21.0-32.0); EST CRCL DRUG DOSING (CG) 46.54 mL/min; POTASSIUM,K 3.8 mmol/L (3.5-5.1); PROTEIN TOTAL,TP 6.6 g/dL (6.4-8.2); TSH ULTRASENSITIVE 3.93 uIU/mL (0.36-3.74)
[2024-02-29 21:09] LABS: T4 FREE 1.03 ng/dL (0.76-1.46)
[2024-02-29 22:12] VITALS: BP 136/66; PULSE 59
== END 2024-02-29 22:11 | disposition home or self-care (01) ==
LOC: MW.ED 19:12
DX: R00.2 Palpitations (principal); I10 Essential (primary) hypertension; K21.9 Gastro-esophageal reflux disease without esophagitis; Z90.49 Acquired absence of other specified parts of digestive tract; Z79.899 Other long term (current) drug therapy
CPT/HCPCS: 36415; 71045; 80053; 83880; 84439; 84443; 84484; 85025; 93005; 99285; J3490

== ENCOUNTER 2024-12-21 18:29 | Emergency (ER) | payer MEDICARE, BC ==
[2024-12-21] MEDS ORDERED: Sodium Chloride 0.9% 10 ML Syringe FLUSH PRN (18:53)
[2024-12-21] MEDS ORDERED: Sodium Chloride 0.9% 2.5 ML Syringe FLUSH PRN (18:53)
[2024-12-21 18:58] LABS: BASOPHILS ABSOLUTE AUTO 0.06 K/uL (0.00-0.20); BASOPHILS PERCENT AUTO 0.6 % (0.0-1.0); EOSINOPHILS ABSOLUTE AUTO 0.11 K/uL (0.00-0.45); HEMOGLOBIN 13.6 g/dL (12.0-16.0); IMMATURE GRAN ABSOLUTE AUTO 0.03 K/uL (0.00-0.05); IMMATURE GRAN PERCENT AUTO 0.3 % (0.0-0.4); LYMPHOCYTES ABSOLUTE AUTO 2.06 K/uL (1.00-4.80); LYMPHOCYTES PERCENT AUTO 18.9 % (24.0-44.0); MEAN CORPUSCULAR HEMOGLOBIN 31.7 pg (28.0-32.0); MEAN CORPUSCULAR HGB CONC 34.9 g/dL (32.0-36.0); MEAN CORPUSCULAR VOLUME 90.9 fL (83.0-99.0); MEAN PLATELET VOLUME 8.2 fL (9.4-12.3); MONOCYTES ABSOLUTE AUTO 1.04 K/uL (0.00-0.80); MONOCYTES PERCENT AUTO 9.6 % (0.0-8.0); NEUTROPHILS ABSOLUTE AUTO 7.59 K/uL (1.80-7.70); NEUTROPHILS PERCENT AUTO 69.6 % (41.0-71.0); PLATELET COUNT,PLT 409 K/uL (150-400); RED BLOOD CELL COUNT 4.29 M/uL (4.10-5.30); WHITE BLOOD CELL COUNT,WBC 10.89 K/uL (3.9-11.3)
[2024-12-21 19:03] LABS: CALCIUM 8.6 mg/dL (8.5-10.1); CARBON DIOXIDE,CO2 27.8 mmol/L (21.0-32.0); CREATININE 0.8 mg/dL (0.6-1.0); EST CRCL DRUG DOSING (CG) 57.27 mL/min; POTASSIUM,K 4.3 mmol/L (3.5-5.1)
[2024-12-21] MEDS: Sodium Chloride 0.9% 1,000 ML IV SCH (19:59)
[2024-12-21 21:18] VITALS: BP 134/70; PULSE 57
== END 2024-12-21 21:59 | disposition home or self-care (01) ==
LOC: MW.ED 18:29
DX: I49.3 Ventricular premature depolarization (principal); I10 Essential (primary) hypertension; K21.9 Gastro-esophageal reflux disease without esophagitis; Z90.49 Acquired absence of other specified parts of digestive tract; Z79.01 Long term (current) use of anticoagulants; Z79.899 Other long term (current) drug therapy
CPT/HCPCS: 36415; 71045; 80048; 84484; 85025; 93005; 99284; J7030; 99283

== ENCOUNTER 2025-01-08 17:36 | Emergency (ER) | payer BC, MEDICARE ==
[2025-01-08 18:51] LABS: BASOPHILS ABSOLUTE AUTO 0.07 K/uL (0.00-0.20); BASOPHILS PERCENT AUTO 0.7 % (0.0-1.0); EOSINOPHILS ABSOLUTE AUTO 0.13 K/uL (0.00-0.45); EOSINOPHILS PERCENT AUTO 1.3 % (0.0-6.0); HEMATOCRIT 37.1 % (37.0-47.0); IMMATURE GRAN ABSOLUTE AUTO 0.03 K/uL (0.00-0.05); IMMATURE GRAN PERCENT AUTO 0.3 % (0.0-0.4); LYMPHOCYTES PERCENT AUTO 18.3 % (24.0-44.0); MEAN CORPUSCULAR HEMOGLOBIN 32.5 pg (28.0-32.0); MEAN CORPUSCULAR VOLUME 92.8 fL (83.0-99.0); MEAN PLATELET VOLUME 8.2 fL (9.4-12.3); MONOCYTES ABSOLUTE AUTO 0.94 K/uL (0.00-0.80); MONOCYTES PERCENT AUTO 9.5 % (0.0-8.0); NEUTROPHILS ABSOLUTE AUTO 6.89 K/uL (1.80-7.70); NEUTROPHILS PERCENT AUTO 69.9 % (41.0-71.0); PLATELET COUNT,PLT 340 K/uL (150-400); WHITE BLOOD CELL COUNT,WBC 9.86 K/uL (3.9-11.3)
[2025-01-08 19:07] LABS: CALCIUM 8.6 mg/dL (8.5-10.1); CARBON DIOXIDE,CO2 25.2 mmol/L (21.0-32.0); EST CRCL DRUG DOSING (CG) 45.82 mL/min; MAGNESIUM 2.1 mg/dL (1.8-2.4); POTASSIUM,K 4.1 mmol/L (3.5-5.1)
[2025-01-08 21:31] VITALS: BP 146/95; PULSE 58
== END 2025-01-08 21:31 | disposition home or self-care (01) ==
LOC: MW.ED 17:36
DX: I10 Essential (primary) hypertension (principal); K21.9 Gastro-esophageal reflux disease without esophagitis; Z79.899 Other long term (current) drug therapy; Z90.49 Acquired absence of other specified parts of digestive tract
CPT/HCPCS: 36415; 80048; 83735; 84484; 85025; 99283

== ENCOUNTER 2025-01-12 13:32 | Emergency (ER) | payer MEDICARE, BC ==
[2025-01-12 13:55] VITALS: BP 123/56
[2025-01-12 13:58] VITALS: PULSE 43
[2025-01-12 15:03] LABS: BASOPHILS ABSOLUTE AUTO 0.04 K/uL (0.00-0.20); BASOPHILS PERCENT AUTO 0.5 % (0.0-1.0); EOSINOPHILS ABSOLUTE AUTO 0.08 K/uL (0.00-0.45); EOSINOPHILS PERCENT AUTO 0.9 % (0.0-6.0); HEMATOCRIT 35.4 % (37.0-47.0); IMMATURE GRAN ABSOLUTE AUTO 0.02 K/uL (0.00-0.05); IMMATURE GRAN PERCENT AUTO 0.2 % (0.0-0.4); LYMPHOCYTES ABSOLUTE AUTO 1.37 K/uL (1.00-4.80); LYMPHOCYTES PERCENT AUTO 16.1 % (24.0-44.0); MEAN CORPUSCULAR HEMOGLOBIN 31.8 pg (28.0-32.0); MEAN CORPUSCULAR HGB CONC 33.9 g/dL (32.0-36.0); MEAN CORPUSCULAR VOLUME 93.9 fL (83.0-99.0); MEAN PLATELET VOLUME 8.2 fL (9.4-12.3); MONOCYTES ABSOLUTE AUTO 0.72 K/uL (0.00-0.80); MONOCYTES PERCENT AUTO 8.5 % (0.0-8.0); NEUTROPHILS ABSOLUTE AUTO 6.28 K/uL (1.80-7.70); NEUTROPHILS PERCENT AUTO 73.8 % (41.0-71.0); PLATELET COUNT,PLT 321 K/uL (150-400); RED BLOOD CELL COUNT 3.77 M/uL (4.10-5.30); WHITE BLOOD CELL COUNT,WBC 8.51 K/uL (3.9-11.3)
[2025-01-12 15:47] LABS: ALBUMIN 2.9 g/dL (3.4-5.0); BILIRUBIN TOTAL 0.3 mg/dL (0.2-1.0); CALCIUM 8.1 mg/dL (8.5-10.1); CARBON DIOXIDE,CO2 28.9 mmol/L (21.0-32.0); EST CRCL DRUG DOSING (CG) 45.82 mL/min; MAGNESIUM 2.1 mg/dL (1.8-2.4); POTASSIUM,K 3.7 mmol/L (3.5-5.1); PROTEIN TOTAL,TP 5.9 g/dL (6.4-8.2)
== END 2025-01-12 16:41 | disposition home or self-care (01) ==
LOC: MW.ED 13:32
DX: R00.2 Palpitations (principal); K21.9 Gastro-esophageal reflux disease without esophagitis; Z79.899 Other long term (current) drug therapy; Z90.49 Acquired absence of other specified parts of digestive tract
CPT/HCPCS: 36415; 80053; 83735; 84484; 85025; 93005; 93010; 99284; 99285